=== PATIENT | female | born 1950 | race Caucasian/White ===

== ENCOUNTER 2016-12-22 07:54 | Emergency (ER) | payer MEDICARE ==
[~2016-12-22 07:54] MED LIST: SULF1TAB23 PO
[2016-12-22 07:58] VITALS: BP 162/92
[2016-12-22] MEDS ORDERED: KETOROLAC 30 MG/ML VIAL. IV ONE (08:30)
[2016-12-22] MEDS ORDERED: KETOROLAC 30 MG/ML VIAL. ONE (08:30)
--- NOTE | 2016-12-22 08:53 | RAD ---
Portable left tibia and fibula, 2 views, 12/22/2016: History: Laceration No fracture is identified. There is a soft tissue defect compatible with the patient's known laceration along the medial aspect of the lower leg. A partially radiopaque bandage overlies that region. IMPRESSION: No acute bony abnormality is detected.
[2016-12-22] MEDS ORDERED: FENTANYL PF 100 MCG/2 ML VIAL. IV ONE (09:15)
[2016-12-22] MEDS ORDERED: ONDANSETRON PF 4 MG/2 ML VIAL. IV ONE (09:15)
[2016-12-22] MEDS ORDERED: LIDOCAINE 1%/EPI 1:100,000 20 ML VIAL. IJ ONE (09:40)
[2016-12-22] MEDS ORDERED: CEPHALEXIN 500 MG CAPSULE PO ONE (10:00)
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
== END 2016-12-22 09:49 | disposition home or self-care (01) ==
LOC: ER 07:59
DX: S81.812A Laceration without foreign body, left lower leg, initial encounter (principal); W23.0XXA Caught, crushed, jammed, or pinched between moving objects, initial encounter; Y93.89 Activity, other specified; Y92.89 Other specified places as the place of occurrence of the external cause; Y99.8 Other external cause status
CPT/HCPCS: 12004; 73590; 96374; 96375; 99284; J2405; J3010; 12005